=== PATIENT | male | born 1985 | race African-American/Black ===

== ENCOUNTER 2018-05-26 23:22 | Emergency (ER) | payer SELFPAY ==
[2018-05-26 23:39] VITALS: BP 125/74; TEMP 97.9; O2SAT 97
--- NOTE | 2018-05-26 23:48 | ED.PDOC ---
History of Present Illness - General Chief Complaint: Problem Stated Complaint: burning after urination and itching x 4 months Time Seen by Provider: 05/26/18 23:38 Source: patient Exam Limitations: no limitations - History of Present Illness Initial Comments: The patient is a 32-year-old -[place] male presenting to the emergency room because his significant other tested positive for chlamydia and Trichomonas less than a week ago here. He is essentially asymptomatic. Timing/Duration: unsure Severity: mild Allergies/Adverse Reactions: Allergies NO KNOWN ALLERGY Allergy (Verified 11/09/15 13:25) Home Medications: Ambulatory Orders NK [NK] 05/26/18 Review of Systems - Review of Systems Constitutional: States: no symptoms reported EENTM: States: no symptoms reported Respiratory: States: no symptoms reported Cardiology: States: no symptoms reported Gastrointestinal/Abdominal: States: no symptoms reported Genitourinary: States: no symptoms reported Musculoskeletal: States: no symptoms reported Skin: States: no symptoms reported Neurological: States: no symptoms reported All other Systems: No Change from Baseline Past Medical History (General) - Patient Medical History Hx Seizures: No Hx Stroke: No Hx Dementia: No Hx Asthma: No Hx of COPD: No Hx Cardiac Disorders: No Hx Congestive Heart Failure: No Hx Pacemaker: No Hx Hypertension: No Hx Thyroid Disease: No Hx Diabetes: No Hx Gastroesophageal Reflux: No Hx Renal Disease: No Hx Cancer: No Hx of HIV: No Hx Hepatitis C: No Hx MRSA: No Surgical History: no surgical history - Vaccination History Hx Tetanus, Diphtheria Vaccination: No Hx Influenza Vaccination: No Hx Pneumococcal Vaccination: No Immunizations Up to Date: No - Social History Hx Tobacco Use: Yes Hx Chewing Tobacco Use: No Hx Alcohol Use: No Hx Substance Use: Yes - admits to marjuana use Hx Substance Use Treatment: No Hx Depression: No Feels Threatened In Home Enviroment: No Feels Threatened In a Relationship: No Hx Physical Abuse: No Hx Emotional Abuse: No Hx Suspected Abuse: No - Female History Patient is a Female of Child Bearing Age (10 -59 yrs old): No Patient : No - Triage Comment ED Triage Comment: states to have been treated 6 months ago for STD's, Family Medical History - Family History Father Family History: No Known Living Status: Still Living Mother Family History: No Known Living Status: Still Living Physical Exam - Physical Exam General Appearance: Alert, Comfortable, No apparent distress Eye Exam: bilateral normal Ears, Nose, Throat: hearing grossly normal Neck: full range of motion Respiratory: no respiratory distress, no accessory muscle use Cardiovascular/Chest: no edema Gastrointestinal/Abdominal: non tender, soft Rectal Exam: deferred Extremity: normal range of motion 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 The patient received empiric treatment with a gram of azithromycin and 2 g of metronidazole. They both need to present to the public health department in a couple of weeks for comprehensive STD testing. ER warnings were given. Departure - Departure Clinical Impression: Sexually transmitted disease Disposition: Discharge to Home or Self Care Condition: Fair Departure Forms: ED Discharge - Pt. Copy, Patient Portal Self Enrollment Diet: regular diet Activity: increase activity as tolerated Home Medications: Ambulatory Orders NK [NK] 05/26/18 Additional Instructions: the patient is a 32-year-old male presented to the emergency room because his significant other tested positive for chlamydia and Trichomonas earlier in the week. The patient received empiric treatment with a gram of azithromycin and 2 g of metronidazole. They both need to present to the public health department in a couple of weeks for comprehensive STD testing. ER warnings were given.
[2018-05-27] MEDS ORDERED: AZITHROMYCIN 250 MG TAB PO ONE
[2018-05-27] MEDS ORDERED: metroNIDAZOLE 500 MG TAB PO ONE
== END 2018-05-26 23:54 | disposition home or self-care (01) ==
LOC: ER 23:22
DX: A64 Unspecified sexually transmitted disease (principal); Z87.891 Personal history of nicotine dependence
CPT/HCPCS: 81001; 87086; Q0144

== ENCOUNTER 2018-07-17 18:49 | Emergency (ER) | payer OTHER ==
[2018-07-17 19:28] VITALS: O2SAT 98
--- NOTE | 2018-07-17 19:44 | ED.PDOC ---
History of Present Illness - General Chief Complaint: Laceration Stated Complaint: laceration to forefinger Time Seen by Provider: 07/17/18 19:42 Source: patient Exam Limitations: no limitations - History of Present Illness Initial Comments: Patient presents with a laceration to the lateral distal left 2nd digit. 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 It is hemostatic and mildly tender. No other injuries nor complaints. Timing/Duration: 1-3 hours Severity: mild Improving Factors: nothing Worsening Factors: nothing Associated Symptoms: denies symptoms Allergies/Adverse Reactions: Allergies NO KNOWN ALLERGY Allergy (Verified 11/09/15 13:25) Home Medications: Ambulatory Orders NK 05/26/18 Review of Systems - Review of Systems Constitutional: States: no symptoms reported EENTM: States: no symptoms reported Respiratory: States: no symptoms reported Cardiology: States: no symptoms reported Gastrointestinal/Abdominal: States: no symptoms reported Genitourinary: States: no symptoms reported Musculoskeletal: States: no symptoms reported Skin: States: see HPI Neurological: States: no symptoms reported Endocrine: States: no symptoms reported Hematologic/Lymphatic: States: no symptoms reported Past Medical History (General) - Patient Medical History Hx Seizures: No Hx Stroke: No Hx Dementia: No Hx Asthma: No Hx of COPD: No Hx Cardiac Disorders: No Hx Congestive Heart Failure: No Hx Pacemaker: No Hx Hypertension: No Hx Thyroid Disease: No Hx Diabetes: No Hx Gastroesophageal Reflux: No Hx Renal Disease: No Hx Cancer: No Hx of HIV: No Hx Hepatitis C: No Hx MRSA: No - Vaccination History Hx Tetanus, Diphtheria Vaccination: No Hx Influenza Vaccination: No Hx Pneumococcal Vaccination: No - Social History Hx Tobacco Use: Yes Hx Chewing Tobacco Use: No Hx Alcohol Use: No Hx Substance Use: Yes - admits to marjuana use Hx Substance Use Treatment: No Hx Depression: No Hx Physical Abuse: No Hx Emotional Abuse: No Hx Suspected Abuse: No - Female History Patient : No Family Medical History - Family History Father Family History: No Known Living Status: Still Living Mother Family History: No Known Living Status: Still Living Physical Exam - Physical Exam General Appearance: Alert Respiratory: lungs clear, normal breath sounds Cardiovascular/Chest: normal peripheral pulses, regular rate, rhythm Gastrointestinal/Abdominal: normal bowel sounds, non tender, soft Extremity: normal range of motion, non-tender, normal inspection, other - 3.5 cm longitudinal superficial laceration of the distal lateral left second digit. Hemostatic. Capillary refill of the left nailbeds is less than 2 seconds. Patient has full AROM of the left fingers and hand. Neurologic: no motor/sensory deficits, alert, normal mood/affect, other - full sensation over entire left hand and fingers Progress - Progress Progress: 07/17/18 19:46 Patient refused Dermabond or steri-strips. Wound was cleaned and dressed. Wound edges were already naturally opposed. Tetanus booster given. 07/17/18 19:48 Departure - Departure Clinical Impression: Laceration Disposition: Discharge to Home or Self Care Condition: Good Departure Forms: ED Discharge - Pt. Copy, Patient Portal Self Enrollment Instructions: DI for Laceration Repair, How to Care for a Laceration After Repair Diet: resume usual diet Activity: increase activity as tolerated Home Medications: Ambulatory Orders NK 05/26/18 Additional Instructions: Return to the E.R. for increasing pain, pus, or temperature above 100.4.
[2018-07-17] MEDS: TETANUS,DIPHTHERIA,PERTUSSIS 1 EA SYG IM ONE (19:50)
[2018-07-17] MEDS ORDERED: NEOMYCIN-BACITRACIN-POLYMYXIN 0.9 GM UD TOP ONE (19:52)
[2018-07-17 20:12] VITALS: BP 138/79; TEMP 97
== END 2018-07-17 20:05 | disposition home or self-care (01) ==
LOC: ER 18:49
DX: S61.211A Laceration without foreign body of left index finger without damage to nail, initial encounter (principal); W45.8XXA Other foreign body or object entering through skin, initial encounter; Y99.0 Civilian activity done for income or pay; Y92.69 Other specified industrial and construction area as the place of occurrence of the external cause; Z23 Encounter for immunization; Z87.891 Personal history of nicotine dependence

== ENCOUNTER 2018-10-16 15:33 | Emergency (ER) | payer SELFPAY ==
[2018-10-16] MEDS ORDERED: AZITHROMYCIN 250 MG TAB PO ONE (15:45)
[2018-10-16 15:48] VITALS: BP 132/62; TEMP 97.2; O2SAT 98
--- NOTE | 2018-10-16 15:48 | ED.PDOC ---
History of Present Illness - General Chief Complaint: Problem Stated Complaint: needs tested for STD Time Seen by Provider: 10/16/18 15:44 Source: patient - History of Present Illness Initial Comments: PT PRESENTS TO THE ED WITH COMPLAINT OF PENILE DISCHARGE AND IRRITATION FOR THE PAST 10 DAYS. PT STATES THAT HIS SEXUAL PARTNER RECENTLY TESTED POSITIVE FOR CHLAMYDIA. PT DENIES SORES ON PENIS, FEVER OR CHILLS. Quality: moderate Sexual intercourse history: less than 2 months ago Improving Factors: nothing Worsening Factors: nothing Associated Symptoms: denies symptoms Allergies/Adverse Reactions: Allergies NO KNOWN ALLERGY Allergy (Verified 11/09/15 13:25) Home Medications: Ambulatory Orders NK 05/26/18 Review of Systems - Review of Systems Constitutional: Denies: chills, fever Respiratory: Denies: cough, short of breath Cardiology: Denies: chest pain, palpitations Gastrointestinal/Abdominal: Denies: abdominal pain, nausea, vomiting Genitourinary: States: see HPI, discharge, dysuria Musculoskeletal: Denies: back pain, joint swelling Past Medical History (General) - Patient Medical History Hx Seizures: No Hx Stroke: No Hx Dementia: No Hx Asthma: No Hx of COPD: No Hx Cardiac Disorders: No Hx Congestive Heart Failure: No Hx Pacemaker: No Hx Hypertension: No Hx Thyroid Disease: No Hx Diabetes: No Hx Gastroesophageal Reflux: No Hx Renal Disease: No Hx Cancer: No Hx of HIV: No Hx Hepatitis C: No Hx MRSA: No - Vaccination History Hx Tetanus, Diphtheria Vaccination: No Hx Influenza Vaccination: No Hx Pneumococcal Vaccination: No - Social History Hx Tobacco Use: Yes Hx Chewing Tobacco Use: No Hx Alcohol Use: No Hx Substance Use: Yes - admits to [facility] use Hx Substance Use Treatment: No Hx Depression: No Hx Physical Abuse: No Hx Emotional Abuse: No Hx Suspected Abuse: No - Female History Patient : No Family Medical History - Family History Father Family History: No Known Living Status: Still Living Mother Family History: No Known Living Status: Still Living Physical Exam - Physical Exam General Appearance: Alert, No apparent distress, Well Developed, Well Groomed, Well Hydrated Eyes, Ears, Nose, Throat Exam: normal ENT inspection Neck: normal inspection Cardiovascular/Respiratory: no respiratory distress Gastrointestinal/Abdominal: non tender, soft Male Genital Exam: other - PT DECLINED Back Exam: normal inspection, no CVA tenderness Neurologic: alert, normal mood/affect, oriented x 3 Skin Exam: normal color, warm/dry Progress - Progress Progress: 10/16/18 15:50 WILL TREAT FOR GC/CHLAMYDIA. Departure - Departure Clinical Impression: Sexually transmitted disease, Urethritis Time of Disposition: 15:50 Disposition: Discharge to Home or Self Care Condition: Good Departure Forms: ED Discharge - Pt. Copy, Patient Portal Self Enrollment Instructions: Sexually-Transmitted Diseases (DC), Urethritis (DC) Referrals: [facility] [Provider Group] - 1-2 Weeks Home Medications: Ambulatory Orders NK 05/26/18
[2018-10-16] MEDS ORDERED: LIDOCAINE 1% 2 ML VIAL INJ ONE (15:49)
== END 2018-10-16 16:15 | disposition home or self-care (01) ==
LOC: ER 15:33
DX: A64 Unspecified sexually transmitted disease (principal); N34.2 Other urethritis; Z87.891 Personal history of nicotine dependence
CPT/HCPCS: 81001; 87491; 87591; J0696; Q0144

== ENCOUNTER 2018-11-03 07:59 | Emergency (ER) | payer SELFPAY ==
--- NOTE | 2018-11-03 08:22 | ED.PDOC ---
History of Present Illness - General Chief Complaint: Headache Stated Complaint: headache and chills Time Seen by Provider: 11/03/18 08:02 Source: patient Exam Limitations: no limitations - History of Present Illness Initial Comments: Collins Nuñez 33 y/o male stated that he had been having cough /congestion for the last 3 days ,then with fever and body aches today.No ill contact,no travel outside [place].No chronic medical problem,no N/V. Timing/Duration: constant, other - 3 days Severity: moderate Improving Factors: nothing Worsening Factors: nothing Associated Symptoms: other - see hpi Allergies/Adverse Reactions: Allergies NO KNOWN ALLERGY Allergy (Verified 11/09/15 13:25) Home Medications: Ambulatory Orders Azithromycin [Zithromax Z-Angelo] 500 mg PO DAILY #6 tab 11/03/18 Review of Systems - Review of Systems Constitutional: States: see HPI, fever EENTM: States: see HPI, nose congestion Respiratory: States: see HPI, cough All other Systems: Reviewed and Negative, No Change from Baseline Past Medical History (General) - Patient Medical History Hx Seizures: No Hx Stroke: No Hx Dementia: No Hx Asthma: No Hx of COPD: No Hx Cardiac Disorders: No Hx Congestive Heart Failure: No Hx Pacemaker: No Hx Hypertension: No Hx Thyroid Disease: No Hx Diabetes: No Hx Gastroesophageal Reflux: No Hx Renal Disease: No Hx Cancer: No Hx of HIV: No Hx Hepatitis C: No Hx MRSA: No Surgical History: no surgical history - Vaccination History Hx Tetanus, Diphtheria Vaccination: No Hx Influenza Vaccination: No Hx Pneumococcal Vaccination: No Immunizations Up to Date: Yes - Social History Hx Tobacco Use: Yes Cigarettes Packs Per Day: 10 Hx Chewing Tobacco Use: No Hx Alcohol Use: No Hx Substance Use: Yes - admits to [facility] use Hx Substance Use Treatment: No Hx Depression: No Hx Physical Abuse: No Hx Emotional Abuse: No Hx Suspected Abuse: No - Female History Patient : No Family Medical History - Family History Father Family History: No Known Living Status: Still Living Mother Family History: No Known Living Status: Still Living Physical Exam - Physical Exam General Appearance: Alert, No apparent distress Eye Exam: bilateral normal Ears, Nose, Throat: hearing grossly normal, normal ENT inspection, nasal congestion, pharyngeal erythema Neck: non-tender, full range of motion, supple, normal inspection Respiratory: chest non-tender, lungs clear, normal breath sounds, no respiratory distress Cardiovascular/Chest: normal peripheral pulses, regular rate, rhythm, no murmur Peripheral Pulses: radial,right: 2+, radial,left: 2+ Gastrointestinal/Abdominal: normal bowel sounds, non tender, soft, no organomegaly Back Exam: no CVA tenderness, no vertebral tenderness Neurologic: alert, oriented x 3 Skin Exam: normal color, warm/dry Lymphatic: no adenopathy Progress - Progress Progress: 11/03/18 08:25 11/03/18 08:23 Flu A+B (PCR) [INFLUENZA A & B BY PCR] Stat Chest,1 View [RAD] Stat GROUP A STREP SCREEN, RAPID Stat 11/03/18 08:25 Vital Signs - 8 hr 11/03/18 08:06 Temperature 101 F H Pulse Rate [ 83 Left] Respiratory 20 Rate Blood Pressure 141/72 [Left Arm] O2 Sat by Pulse 93 L Oximetry - Results/Orders Results/Orders: discuss all test result with patient test NEGATIVE for FLU/STREP - EKG/XRAY/CT XRAY: chest - no acute findings CT Ordered: No Departure - Departure Clinical Impression: Upper respiratory infection Qualifiers: URI type: unspecified URI Qualified Code(s): J06.9 - Acute upper respiratory infection, unspecified Time of Disposition: 09:22 Disposition: Discharge to Home or Self Care Condition: Fair Departure Forms: ED Discharge - Pt. Copy, Patient Portal Self Enrollment Instructions: Bacterial Upper Respiratory Infection, Adult (DC), Viral Upper Respiratory Infection, Adult (DC) Prescriptions: Azithromycin [Zithromax Z-Angelo] 500 mg PO DAILY #6 tab Home Medications: Ambulatory Orders Azithromycin [Zithromax Z-Angelo] 500 mg PO DAILY #6 tab 11/03/18 Additional Instructions: Return to Emergency room if symptoms worsens;Take Motrin /or Advil (over the counter) 3 tablets 3 x a day for pain fever ;Drink extra fluids.
--- NOTE | 2018-11-03 08:44 | RAD ---
EXAM: XR Chest, 1 View CLINICAL HISTORY: 33 years old and is Male; cough/fever TECHNIQUE: Frontal view of the chest. COMPARISON: No relevant prior studies available. FINDINGS: Limitations: None. Lungs: Unremarkable. No consolidation. Pleural space: Unremarkable. No pneumothorax. Heart: Unremarkable. No cardiomegaly. Mediastinum: Unremarkable. Bones/joints: Unremarkable. IMPRESSION: No acute findings. Electronically signed by: Marilu Saavedra MD 11/03/2018 8:42 AM CDT
[2018-11-03] MEDS ORDERED: cefTRIAXone SODIUM 1 GM VIAL IM ONE (09:24)
[2018-11-03] MEDS ORDERED: HYDROcodone 7.5MG/APAP 325MG 1 EA TAB PO ONE (09:24)
[2018-11-03] MEDS ORDERED: LIDOCAINE 1% 10 ML VIAL INJ ONE (09:42)
[2018-11-03 10:20] VITALS: O2SAT 96
[2018-11-03 10:21] VITALS: BP 144/63; TEMP 100.8
== END 2018-11-03 10:10 | disposition home or self-care (01) ==
LOC: ER 07:59
DX: J06.9 Acute upper respiratory infection, unspecified (principal); Z87.891 Personal history of nicotine dependence
CPT/HCPCS: 71045; 87070; 87502; 87880; J0696

== ENCOUNTER 2019-04-22 08:56 | Emergency (ER) | payer SELFPAY ==
[2019-04-22] MEDS ORDERED: BUPIVACAINE 0.5% 30 ML VIAL INJ ONE (09:06)
--- NOTE | 2019-04-22 09:10 | ED.PDOC ---
History of Present Illness - General Chief Complaint: Dental/Mouth Time Seen by Provider: 04/22/19 09:02 Source: patient Exam Limitations: no limitations - History of Present Illness Initial Comments: 33 y/o M presents to the ED c/o R upper dental pain x 2 weeks. He has been taking OTC excedrin without significant improvement in sx. He denies fevers/chills or N/V. Allergies/Adverse Reactions: Allergies NO KNOWN ALLERGY Allergy (Verified 11/09/15 13:25) Home Medications: Ambulatory Orders Azithromycin [Zithromax Z-Angelo] 500 mg PO DAILY #6 tab 11/03/18 Naproxen [Naproxen EC] 500 mg PO Q12HR PRN #20 tab 04/22/19 Penicillin V Pot Tab [Veetids] 500 mg PO Q12HR #20 tab 04/22/19 Review of Systems - Review of Systems Constitutional: Denies: chills, fever EENTM: States: other - r upper dental pain. Denies: throat swelling, mouth swelling Musculoskeletal: Denies: neck pain Skin: Denies: lesions, rash Hematologic/Lymphatic: Denies: swollen glands Past Medical History (General) - Patient Medical History Hx Seizures: No Hx Stroke: No Hx Dementia: No Hx Asthma: No Hx of COPD: No Hx Cardiac Disorders: No Hx Congestive Heart Failure: No Hx Pacemaker: No Hx Hypertension: No Hx Thyroid Disease: No Hx Diabetes: No Hx Gastroesophageal Reflux: No Hx Renal Disease: No Hx Cancer: No Hx of HIV: No Hx Hepatitis C: No Hx MRSA: No - Vaccination History Hx Tetanus, Diphtheria Vaccination: No Hx Influenza Vaccination: No Hx Pneumococcal Vaccination: No - Social History Hx Tobacco Use: Yes Hx Chewing Tobacco Use: No Hx Alcohol Use: No Hx Substance Use: Yes - admits to marjuana use Hx Substance Use Treatment: No Hx Depression: No Hx Physical Abuse: No Hx Emotional Abuse: No Hx Suspected Abuse: No - Female History Patient : No Family Medical History - Family History Father Family History: No Known Living Status: Still Living Mother Family History: No Known Living Status: Still Living Physical Exam - Physical Exam General Appearance: Well Developed, Well Nourished Eye Exam: bilateral normal Nasal Exam: normal inspection Throat Exam: normal mouth inspection, other - diffuse dental caries with multiple broken and eroded teeth. Tooth #4 is broken and eroded to the gum with tenderness. No periapical abscess Neck: full range of motion, supple, other - no lymphadenopathy Cardiovascular/Respiratory: regular rate, rhythm, no M/R/G, normal breath sounds Neurologic: other - moves all extremities without focal deficits Skin Exam: normal color, warm/dry, other - no erythema or edema Progress - Progress Progress: 04/22/19 09:21 Anterior superior alveolar block performed using 2 ml of 0.5% marcaine. Pt tolerated well and there were no complications. Discussed with pt plan for d/c home with oral abx and pain medications. I stressed the need to f/u with a dentist as soon as possible. He was encouraged to return for worsening of condition or other concerns. Pt voiced understanding and agrees and all questions/concerns were addressed. Departure - Departure Clinical Impression: Dental caries, Acute pain of mouth Time of Disposition: 09:34 Disposition: Discharge to Home or Self Care Condition: Good Departure Forms: ED Discharge - Pt. Copy, Patient Portal Self Enrollment Instructions: DI for Dental Pain Prescriptions: Naproxen [Naproxen EC] 500 mg PO Q12HR PRN #20 tab PRN Reason: Pain Penicillin V Pot Tab [Veetids] 500 mg PO Q12HR #20 tab Home Medications: Ambulatory Orders Azithromycin [Zithromax Z-Angelo] 500 mg PO DAILY #6 tab 11/03/18 Naproxen [Naproxen EC] 500 mg PO Q12HR PRN #20 tab 04/22/19 Penicillin V Pot Tab [Veetids] 500 mg PO Q12HR #20 tab 04/22/19 Additional Instructions: Follow up with the [facility] for dental care at [address] [place] [address]. [phone]. Return to the ER for worsening sx, fevers or other concerns.
[2019-04-22 09:52] VITALS: BP 160/85; TEMP 97.2; O2SAT 98
== END 2019-04-22 09:47 | disposition home or self-care (01) ==
LOC: ER 08:56
DX: K02.9 Dental caries, unspecified (principal); S02.5XXA Fracture of tooth (traumatic), initial encounter for closed fracture; K03.2 Erosion of teeth; Z87.891 Personal history of nicotine dependence; X58.XXXA Exposure to other specified factors, initial encounter; Y92.9 Unspecified place or not applicable